=== PATIENT | female | born 1945 | race Caucasian/White ===

== ENCOUNTER 2016-05-24 14:21 | Emergency (ER) | payer MEDICARE, OTHER ==
[2016-05-24 15:00] LABS: BASOPHIL 0.5 % (0-2); EOSINOPHIL 1.5 % (0-7); HCT 46.8 % (37.0-47.0); HGB 15.7 g/dl (12.5-16.0); LYMPHOCYTE 26.6 % (15-48); MCHC 33.5 g/dL (32.0-36.0); MCV 89.3 fL (78.0-100.0); MONOCYTE 6.9 % (0-12); MPV 9.5 fL (6.0-9.5); NEUTROPHIL 64.5 % (41-80); PLT 208 K/uL (150-400); RBC 5.24 M/uL (4.20-5.40); RDW 13.1 % (11.5-14.0); WBC 8.8 K/uL (4.0-10.5)
[2016-05-24 15:16] LABS: CKMB 1.56 ng/mL (0.97-4.94); TROPONIN T < 0.010 ng/mL
[2016-05-24 15:17] LABS: ALBUMIN 4.9 g/dL (3.4-4.8); BILIRUBIN - TOTAL 0.8 mg/dL (0.1-1.0); CREATININE 0.9 mg/dL (0.5-1.0); GLOBULIN (CALCULATION) 3.2 g/dL (2.2-4.2); POTASSIUM 4.2 mmol/L (3.5-5.1); TOTAL PROTEIN 8.1 g/dL (6.4-8.3)
[2016-05-24 16:25] LABS: BILIRUBIN NEGATIVE (NEGATIVE); BLOOD NEGATIVE Ery/uL (NEGATIVE); CLARITY CLEAR (CLEAR); COLOR YELLOW (YELLOW); GLUCOSE (U) NORMAL (NORMAL); KETONE (U) 2+ (MODERATE) mg/dL (NEGATIVE); LEUKOCYTES TRACE Leu/uL (NEGATIVE); NITRITE NEGATIVE (NEGATIVE); PROTEIN NEGATIVE (NEGATIVE); UROBILINOGEN 0.2 mg/dL (0.2-1.0); pH 7.5 (5.0-9.0)
[2016-05-24 16:33] LABS: BACTERIA TRACE; URINARY RBC RARE
== END 2016-05-24 17:50 | disposition home or self-care (01) ==
LOC: FER 14:21
PROVIDERS: Emergency Medicine
DX: F41.0 Panic disorder [episodic paroxysmal anxiety] (principal); F32.9 Major depressive disorder, single episode, unspecified; I10 Essential (primary) hypertension; Z79.899 Other long term (current) drug therapy
CPT/HCPCS: 36415; 71275; 80053; 81001; 82550; 82553; 84443; 84484; 85025; 85379; 93005; J2060; Q9967